=== PATIENT | male | born 1985 | race African-American/Black ===

== ENCOUNTER 2025-10-19 10:17 | Inpatient (IN) | payer MEDICAID ==
[~2025-10-19] VITALS: Ht 175.3 cm; Wt 64.4 kg
[2025-10-19 10:25] VITALS: O2SAT 99
[2025-10-19] MEDS: LEVETIRACETAM 1000MG PREMIX 100 ML IV ONE (10:40)
[2025-10-19] MEDS: LORAZEPAM 2MG/ML UD SYRINGE IV NR (10:40)
[2025-10-19 10:47] LABS: BASOPHILS % 1.0 % (0.0-2.0); EOSINOPHILS % 3.1 % (0.0-5.0); HEMATOCRIT. 45.7 % (42.0-52.0); HEMOGLOBIN. 14.3 g/dL (14.0-18.0); LYMPHOCYTES % 45.9 % (20.0-50.0); MEAN PLATELET VOLUME 8.7 fl (7.4-10.4); MONOCYTES % 8.6 % (2.0-8.0); NEUTROPHILS % 41.4 % (40.0-76.0); PLATELET 155 x1000/uL (130-400); RED BLOOD CELL COUNT 5.32 mill/uL (4.7-6.1); RED CELL DISTRIBUTION WIDTH 15.2 % (11.6-14.6)
[2025-10-19 11:03] LABS: CREATININE 1.1 mg/dL (0.6-1.3); UREA NITROGEN BLOOD 17 mg/dL (9-23)
[2025-10-19 11:04] LABS: ETHANOL BLOOD < 10 mg/dL (<10)
[2025-10-19 11:05] LABS: ASPARTATE AMINOTRANSFERASE 20 IU/L (<34); BILIRUBIN DIRECT 0.1 mg/dL (<=3.0)
[2025-10-19 11:06] LABS: BILIRUBIN TOTAL 0.5 mg/dL (0.1-1.0); PROTEIN TOTAL 6.7 g/dL (6.0-8.3)
[2025-10-19 11:11] LABS: INR 1.1
[2025-10-19] MEDS ORDERED: LEVETIRACETAM 1,000MG in NACL 100ML PREMIX IV ONE (15:45)
[2025-10-19] MEDS ORDERED: MAGNESIUM/ALUMINUM HYDROXIDE/SIMETHICONE 30ML UDC PO PRN (15:45)
[2025-10-19] MEDS ORDERED: DOCUSATE SODIUM 100MG CAPSULE PO PRN (15:45)
[2025-10-19] MEDS ORDERED: GUAIFENESIN 200MG/10ML SUGAR FREE UDC PO PRN (15:45)
[2025-10-19] MEDS ORDERED: CLONIDINE 0.1MG TABLET PO PRN (15:45)
[2025-10-19] MEDS ORDERED: ONDANSETRON HCL 4MG/2ML INJ IV PRN (15:45)
[2025-10-19] MEDS ORDERED: ACETAMINOPHEN 325MG TABLET PO PRN ×2 (15:45)
[2025-10-19] MEDS ORDERED: IPRATROPIUM/ALBUTEROL 0.5-3(2.5)MG/3ML NEB HHN PRN (15:45)
[2025-10-19 16:00] VITALS: BP 114/69; PULSE 66; RESP 16; TEMP 36; O2SAT 98
[2025-10-19] MEDS ORDERED: LEVETIRACETAM 1000MG PREMIX 100 ML IV NR (16:15)
[2025-10-19] MEDS ORDERED: LORAZEPAM 2MG/ML UD SYRINGE IV PRN (16:15)
[2025-10-19 16:40] VITALS: BP 114/69; PULSE 66; RESP 16; TEMP 36.0288
[2025-10-19] MEDS: DEXT 5%/0.9% NACL 1,000 ML IV SCH (17:00)
[2025-10-19 19:42] LABS: *AMPHETAMINES SCREEN URINE NEGATIVE (NEGATIVE); *BARBITURATES SCREEN URINE NEGATIVE (NEGATIVE); *BENZODIAZEPINES SCREEN URINE NEGATIVE (NEGATIVE); *COCAINE SCREEN URINE NEGATIVE (NEGATIVE); CLARITY URINE CLEAR (CLEAR); COLOR URINE YELLOW (YELLOW); GLUCOSE URINE NEGATIVE (NEGATIVE); KETONES URINE TRACE (NEGATIVE); LEUKOCYTE ESTERASE URINE NEGATIVE (NEGATIVE); METHADONE URINE SCREEN NEGATIVE (NEGATIVE); NITRITE URINE NEGATIVE (NEGATIVE); OCCULT BLOOD URINE NEGATIVE (NEGATIVE); PH URINE 7.5 (4.5-8.0); PROTEIN URINE TRACE (NEGATIVE); SPECIFIC GRAVITY URINE 1.028 (1.005-1.030); UROBILINOGEN URINE 0.2 E.U./dL (0.2-1.0)
[2025-10-19 19:43] LABS: CANNABINOID URINE SCREEN PRESUMPTIVE POSITIVE (NEGATIVE); ECSTASY MDMA SCREEN URINE NEGATIVE (NEGATIVE); OPIATES URINE SCREEN NEGATIVE (NEGATIVE); PHENCYCLIDINE URINE SCREEN NEGATIVE (NEGATIVE)
[2025-10-19] MEDS ORDERED: LEVETIRACETAM 1,000MG in NACL 100ML PREMIX IV SCH (21:00)
[2025-10-19 21:18] LABS: BACTERIA URINE TRACE; RBC URINE NONE SEEN /hpf (0-2); SQUAMOUS EPITHELIAL CELL URINE RARE /lpf (RARE/1+); WBC URINE 0-2 /hpf (0-2)
[2025-10-19] MEDS: LEVETIRACETAM 1000MG PREMIX 100 ML IV SCH (21:20)
[2025-10-20] VITALS: BP 120/71; PULSE 59; RESP 16; TEMP 37.2; O2SAT 98
[2025-10-20 04:00] VITALS: BP 111/70; PULSE 59; RESP 16; TEMP 37.1; O2SAT 100
[2025-10-20 08:00] VITALS: BP 107/70; PULSE 66; RESP 20; TEMP 36.3; O2SAT 98
[2025-10-20] MEDS: PANTOPRAZOLE SODIUM 40 MG/VIAL IV SCH (08:55)
[2025-10-20 12:00] VITALS: BP 113/72; PULSE 56; RESP 20; TEMP 36.4; O2SAT 99
[2025-10-20 16:00] VITALS: BP 118/81; PULSE 51; RESP 20; TEMP 36.4; O2SAT 99
[2025-10-20 20:00] VITALS: BP 111/74; PULSE 55; RESP 18; TEMP 36.3; O2SAT 100
[2025-10-21] VITALS: BP 123/66; PULSE 56; RESP 18; TEMP 36.2; O2SAT 98
[2025-10-21 04:00] VITALS: BP 116/56; PULSE 64; RESP 18; TEMP 36.1; O2SAT 98
[2025-10-21 07:30] LABS: CREATININE 0.9 mg/dL (0.6-1.3); UREA NITROGEN BLOOD 8 mg/dL (9-23)
[2025-10-21 07:32] LABS: PHOSPHORUS 3.0 mg/dL (2.5-4.9)
[2025-10-21 08:00] VITALS: BP 115/75; PULSE 56; RESP 18; TEMP 36.6; O2SAT 100
[2025-10-21] MEDS ORDERED: LEVE1000 MT (08:09)
[2025-10-21 08:49] LABS: BASOPHILS % 0.3 % (0.0-2.0); EOSINOPHILS % 1.6 % (0.0-5.0); HEMATOCRIT. 39.0 % (42.0-52.0); HEMOGLOBIN. 12.5 g/dL (14.0-18.0); LYMPHOCYTES % 24.3 % (20.0-50.0); MEAN PLATELET VOLUME 9.0 fl (7.4-10.4); MONOCYTES % 14.1 % (2.0-8.0); NEUTROPHILS % 59.7 % (40.0-76.0); PLATELET 118 x1000/uL (130-400); RED BLOOD CELL COUNT 4.64 mill/uL (4.7-6.1); RED CELL DISTRIBUTION WIDTH 14.9 % (11.6-14.6)
[2025-10-21] MEDS: MAGNESIUM 2 G PREMIX 50 ML IV ONE (09:31)
[2025-10-21 12:00] VITALS: BP 126/76; PULSE 53; RESP 20; TEMP 36.6; O2SAT 100
[2025-10-21 15:39] VITALS: BP 117/71; PULSE 55; RESP 17; TEMP 97.8
[2025-10-21 16:00] VITALS: BP 117/78; PULSE 55; RESP 18; TEMP 36.5; O2SAT 100
== END 2025-10-21 16:20 | disposition home health service (06) | DRG 53 ==
LOC: ER 10:17 → 5WST 14:29 → EDBEDREQTM 14:32 → EDBEDREQ 14:32 → ENRESERV 15:29
PROVIDERS: ADMIT Internal Medicine; ATTEND Internal Medicine
PROC: 4A10X4Z Monitoring of Central Nervous Electrical Activity, External Approach (ICD-10-PCS; principal; 2025-10-20)
DX: G40.901 Epilepsy, unspecified, not intractable, with status epilepticus (principal); G93.89 Other specified disorders of brain; G80.1 Spastic diplegic cerebral palsy; Z98.2 Presence of cerebrospinal fluid drainage device; Z87.820 Personal history of traumatic brain injury; Z79.899 Other long term (current) drug therapy
CPT/HCPCS: 36415; 71045; 74018; 80048; 80076; 80305; 80320; 81003; 82550; 83735; 84100; 85025; 93005; 95816; 96365; 99291; A4615; J1953; J2060; J2470; J3475; J7042; G0480